=== PATIENT | male | born 1940 | race Caucasian/White ===

== ENCOUNTER 2017-11-25 04:24 | Emergency (ER) | payer MEDICARE ==
[2017-11-25 06:56] LABS: EOS % 1.1 % (0.0-3.0); HEMATOCRIT 30.5 % (42.0-52.0); HEMOGLOBIN 10.4 g/dl (13.5-17.5); IMMATURE GRANULOCYTE % 0.3 % (0-3.0); LYMPH # 0.9 10^3/uL (1.5-4.5); LYMPH % 24.4 % (24.0-44.0); MEAN CORPUSCULAR HEMOGLOBIN 35.6 pg (27.0-33.0); MEAN CORPUSCULAR HGB CONC 34.1 g/dl (32.0-36.5); MEAN CORPUSCULAR VOLUME 104.5 fl (80.0-96.0); MONO # 0.9 10^3/uL (0.0-0.8); MONO % 26.1 % (0.0-5.0); NEUTROPHILS # 1.7 10^3/uL (1.8-7.7); NEUTROPHILS % 48.1 % (36.0-66.0); PLATELET COUNT, AUTOMATED 115 10^3/uL (150-450); RED BLOOD COUNT 2.92 10^6/uL (4.30-6.10); RED CELL DISTRIBUTION WIDTH 13.6 % (11.5-14.5); WHITE BLOOD COUNT 3.5 10^3/uL (4.0-10.0)
[2017-11-25 07:09] LABS: BEDSIDE GLUCOSE 153 MG/DL (83-110)
[2017-11-25 07:18] LABS: ANION GAP 10 MEQ/L (8-16); BLOOD UREA NITROGEN 49 MG/DL (7-18); CALCIUM LEVEL 8.6 MG/DL (8.8-10.2); CARBON DIOXIDE LEVEL 22 MEQ/L (21-32); CHLORIDE LEVEL 104 MEQ/L (98-107); CREATININE FOR GFR 2.01 MG/DL (0.70-1.30); GLOMERULAR FILTRATION RATE 34.4 (>42); GLUCOSE, FASTING 156 MG/DL (70-100); POTASSIUM SERUM 4.6 MEQ/L (3.5-5.1); SODIUM LEVEL 136 MEQ/L (136-145)
[2017-11-25] MEDS: NS 500 ML IV (07:30)
[2017-11-25 08:10] LABS: BEDSIDE GLUCOSE 157 MG/DL (83-110)
[2017-11-25 09:33] LABS: BEDSIDE GLUCOSE 209 MG/DL (83-110)
[2017-11-25 10:42] LABS: BEDSIDE GLUCOSE 241 MG/DL (83-110)
[2017-11-25 10:53] LABS: BEDSIDE GLUCOSE 170 MG/DL (83-110)
== END 2017-11-25 12:19 | disposition home or self-care (01) ==
LOC: M ED 04:24
DX: E11.649 Type 2 diabetes mellitus with hypoglycemia without coma (principal); I11.9 Hypertensive heart disease without heart failure; M10.9 Gout, unspecified; Z87.891 Personal history of nicotine dependence; Z79.899 Other long term (current) drug therapy; Z79.82 Long term (current) use of aspirin
CPT/HCPCS: 93005

== ENCOUNTER 2018-10-27 12:02 | Inpatient (IN) | payer MEDICARE ==
[~2018-10-27] VITALS: Ht 177.8 cm; Wt 68.1 kg
[~2018-10-27 12:02] MED LIST: ALLO100T PO; ASPI81TA85 PO; CARV3.12 PO; DIGO0.12 PO; GEMF600T5 PO; GLYB1POW XX; LOSA25TA14 PO; SPIR-10 PO
[2018-10-27] MEDS ORDERED: METOCLOPRAMIDE INJ 10MG/2ML VIAL (J2765) IV ONE (12:45)
[2018-10-27] MEDS ORDERED: NS 1,000 ML IV SCH (12:45)
--- NOTE | 2018-10-27 12:52 | REP ---
Chest one-view HISTORY: Syncope Comparison: None Parenchymal density is present in the left lower lobe consistent with atelectasis or infiltrate. The cardiac silhouette is enlarged. The pulmonary vasculature is normal in appearance. Impression: 1. Left lower lobe atelectasis or infiltrate. 2. Cardiomegaly. Electronically Signed by Phoenix Lopez MD 10/27/2018 12:43 P
--- NOTE | 2018-10-27 12:54 | REP ---
CT Head without contrast HISTORY: Dizziness COMPARISON: None Areas of decreased attenuation are present in the periventricular white matter. This represents small-vessel ischemic disease. here is no intraparenchymal hemorrhage, acute infarct, mass or midline shift. The ventricular system and cortical sulci as well as subarachnoid space in the posterior fossa are dilated consistent with moderate volume loss. A janey cisterna magna is present. There is no extra cerebral collection. There is no fracture. The visualized sinuses are clear. IMPRESSION: 1. Small vessel ischemic disease. 2. Moderate volume loss. Electronically Signed by Phoenix Lopez MD 10/27/2018 12:45 P
[2018-10-27 13:15] LABS: EOS % 0.5 % (0.0-3.0); HEMATOCRIT 32.5 % (42.0-52.0); HEMOGLOBIN 10.8 g/dl (13.5-17.5); LYMPH # 0.4 10^3/uL (1.5-4.5); LYMPH % 8.4 % (24.0-44.0); MEAN CORPUSCULAR HEMOGLOBIN 35.4 pg (27.0-33.0); MEAN CORPUSCULAR HGB CONC 33.2 g/dl (32.0-36.5); MEAN CORPUSCULAR VOLUME 106.6 fl (80.0-96.0); MONO # 0.7 10^3/uL (0.0-0.8); MONO % 16.5 % (0.0-5.0); NEUTROPHILS # 3.2 10^3/uL (1.8-7.7); NEUTROPHILS % 73.2 % (36.0-66.0); PLATELET COUNT, AUTOMATED 199 10^3/uL (150-450); RED BLOOD COUNT 3.05 10^6/uL (4.30-6.10); WHITE BLOOD COUNT 4.3 10^3/uL (4.0-10.0)
[2018-10-27] MEDS ORDERED: ENTR1TAB7 PO (13:19)
[2018-10-27] MEDS ORDERED: MIRT1TAB15 PO (13:19)
[2018-10-27 13:26] LABS: INR 1.07
[2018-10-27 13:50] LABS: CALCIUM LEVEL 9.3 MG/DL (8.8-10.2); CK-MB VALUE MASS 1.6 NG/ML (<3.6); CREATININE FOR GFR 1.79 MG/DL (0.70-1.30); GLOMERULAR FILTRATION RATE 39.2 (>42); MAGNESIUM LEVEL 1.9 MG/DL (1.8-2.4); MB/CK RELATIVE INDEX 2.13 (< OR =4); POTASSIUM SERUM 5.2 MEQ/L (3.5-5.1); THYROID STIMULATING HORMONE 6.3 uIU/ML (0.358-3.740); TROPONIN I 0.23 NG/ML (< 0.10)
[2018-10-27] MEDS ORDERED: MOXIFLOXACIN HCL 400 MG in APPROPRIATE DILUENT 1 EA IV ONE (14:00)
[2018-10-27] MEDS: METOPROLOL 5 MG/5 ML VIAL IV SCH ×3 (14:20→15:09)
[2018-10-27] MEDS ORDERED: ACETAMINOPHEN TAB 650MG DOSE (2X325MG) PO PRN (15:15)
[2018-10-27] MEDS ORDERED: GLUCOSE 4 GM CHEW TABLET PO PRN (15:15)
[2018-10-27] MEDS ORDERED: GLUCAGON FOR INJ 1 MG VIAL (J1610) SC PRN (15:15)
[2018-10-27] MEDS ORDERED: DEXTROSE 50% 50 ML SYRINGE IV PRN (15:15)
[2018-10-27] MEDS ORDERED: ALBUTEROL SULFATE 2.5 MG/0.5 ML INH NEB SOLN NEB PRN (15:15)
--- NOTE | 2018-10-27 15:20 | HPEPDOC ---
General Date of Admission 10/27/18 Date of Service: Oct 27, 2018 Other Providers PCP - Diamond Benedict in [facility] Attending Physician: IRAJ ZELAYA DO Chief Complaint The patient is a 78-year-old male admitted with a reason for visit of near Syncope. Source: Patient Exam Limitations: No limitations Timing/Duration: 4-6 hours, Intermittent, Resolved prior to arrival, This morning Severity: Severe Associated Symptoms: Cough, Fever, Chills, Malaise, Nausea, Vomiting, Shortness of breath, Syncope, Weakness, Hypotension, Dizziness, Mechanical fall History of Present Illness 78 yo male at his camp today was cutting grass when he began having increased chills, dry cough and N,V, diarrhea. He states had near syncopal episode and fell. no LOC. came to ED for further evaluation. 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 He states no CP, no SOB, no signs of CHF. States hospitalized 02/2018 with CHF but does not know EF. Home Medications Scheduled Allopurinol (Zyloprim) 300 Mg Tablet, 300 MG PO DAILY, (Reported) Aspirin (Aspir 81) 81 Mg Tab, 81 MG PO QHS, (Reported) Carvedilol (Carvedilol) 3.125 Mg Tab, 3.125 MG PO DAILY, (Reported) Digoxin (Digoxin) 125 Mcg Tab, 125 MCG PO DAILY, (Reported) Mirtazapine (Remeron) 15 Mg Tablet, 15 MG PO QHS, (Reported) Sacubitril/Valsartan (Entresto 49 mg-51 mg Tablet) 1 Each Tablet, 0.5 TAB PO BID, (Reported) Spironolact/Hydrochlorothiazid (Spironolactone-Hctz 25-25 Tab) 1 Each Tablet, 1 EA PO DAILY, (Reported) Scheduled PRN Sodium Chloride (Saline Nasal [place]) 44 Ml [place], 1 SPRAY NARES QID PRN for NASAL DRYNESS, (Reported) Allergies Coded Allergies: No Known Allergies (Unverified , 10/27/18) Past Medical History Medical History Gout, CHF,Hyperlipidemia,insomnia, diet controlled DM Patient states no prior [place] or CAD Surgical History hernia repair, lip biopsy, skin biopsy to left hand Family History Significant Family History: Other mother CHF father from CVA Social History * Smoker: former Smoker (quit 1994) Alcohol: occationally Drugs: denies A-FIB/CHADSVASC A-FIB History Current/History of A-Fib/PAF?: No Review of Systems Other systems 10 comprehensive systems reviewed and negative except as per HPI Physical Examination General Exam: Positive: Alert, Cooperative, No Acute Distress Eye Exam: Positive: PERRLA, Conjunctiva & lids normal, EOMI ENT Exam: Positive: Atraumatic, Mucous membr. moist/pink Neck Exam: Positive: Supple, +2 carotid pulse wo bruit Chest Exam: Positive: Clear to auscultation, Normal air movement, Rhonchi (LLL); Negative: Rales, Wheezing Heart Exam: Positive: Tachycardic, Regular Rhythm Telemetry: Positive: No significant arrhythmia, Tachycardia Abdomen Exam: Positive: Normal bowel sounds, Soft (NT, ND NABS) Extremity Exam: Positive: Normal pulses; Negative: Clubbing, Cyanosis, Edema Skin Exam: Positive: Nl turgor and temperature Neuro Exam: Positive: Normal Speech, Strength at 5/5 X4 ext, Normal Tone, Sensation Intact, Cranial Nerves 3-12 NL Psych Exam: Positive: Mental status NL, Mood NL, Oriented x 3 Vital Signs Vital Signs Date Time Temp Pulse Resp B/P (MAP) Pulse Ox O2 Delivery O2 Flow Rate FiO2 10/27/18 15:15 93 106/54 (71) 10/27/18 15:14 102.1 10/27/18 14:45 95 10/27/18 12:14 20 Room Air Laboratory Data Labs 24H Laboratory Tests 2 10/27/18 13:01: Immature Granulocyte % (Auto) 1.4, White Blood Count 4.3, Red Blood Count 3.05L, Hemoglobin 10.8L, Hematocrit 32.5L, Mean Corpuscular Volume 106.6H, Mean Corpuscular Hemoglobin 35.4H, Mean Corpuscular Hemoglobin Concent 33.2, Red Cell Distribution Width 13.9, Platelet Count 199, Neutrophils (%) (Auto) 73.2H, Ly mphocytes (%) (Auto) 8.4L, Monocytes (%) (Auto) 16.5H, Eosinophils (%) (Auto) 0.5, Basophils (%) (Auto) 0.0, Neutrophils # (Auto) 3.2, Lymphocytes # (Auto) 0.4L, Monocytes # (Auto) 0.7, Eosinophils # (Auto) 0.0, Basophils # (Auto) 0.0, Nucleated Red Blood Cells % (auto) 0.0, Prothrombin Time 14.0, Prothromb Time International Ratio 1.07, Anion Gap 11, Glomerular Filtration Rate 39.2L, Blood Urea Nitrogen 45H, Creatinine 1.79H, Sodium Level 135L, Potassium Level 5.2H, Chloride Level 101, Carbon Dioxide Level 23, Calcium Level 9.3, Total Creatine Kinase 75, Magnesium Level 1.9, Creatine Kinase MB 1.6, Creatine Kinase MB Relative Index 2.13, Troponin I 0.23H, Thyroid Stimulating Hormone (TSH) 6.300H 10/27/18 13:03: Digoxin Level 1.4 CBC/BMP Laboratory Tests 10/27/18 13:01 Red Blood Count 3.05 L, Mean Corpuscular Volume 106.6 H, Mean Corpuscular Hemogl obin 35.4 H, Mean Corpuscular Hemoglobin Concent 33.2, Red Cell Distribution Width 13.9, Neutrophils (%) (Auto) 73.2 H, Lymphocytes (%) (Auto) 8.4 L, Monocytes (%) (Auto) 16.5 H, Eosinophils (%) (Auto) 0.5, Basophils (%) (Auto) 0.0, Neutrophils # (Auto) 3.2, Lymphocytes # (Auto) 0.4 L, Monocytes # (Auto) 0.7, Eosinophils # (Auto) 0.0, Basophils # (Auto) 0.0, Calcium Level 9.3, Total Creatine Kinase 75 RAD Interpretation STUDY: CXR (LLL infiltrate) Rad Actions: Report Reviewed, Films Reviewed, Discussed with the pt RAD Interpretation: Other Result Comments: (CT HEAD: no cva or bleed) Assessment/Plan 1. N/V/D - unclear etiology (gastro enteritis?) 2. LLL pneumonia on CXR - given levaquin in ED. will start rocephin/azith, gentle IVF. 3. Dehydration - gentle IVF - watch for S/S CHF. hold HCTZ 4. Hyperkalemia due to dehydration and meds - currently on entresto and s pironolactone. give IVF and repeat in AM, if still elevated - hold spironolactone 5. Elevated troponin - possible demand ischemia due to N,V,D and dehydration/fever; serial troponin, cardiac echo in AM. old records requested. 6. KASSY due to dehydration - gentle IVF and monitor creatinine 7. history of CHF (last acute episode in [facility] 02/2018) - records reqeusted 8. near syncope due to dehydration - tele, IVF CODE STATUS: FULL DVT prophylaxis: - lovenox Plan / VTE VTE Prophylaxis Ordered?: Yes IRAJ ZELAYA DO Oct 27, 2018 15:20
[2018-10-27] MEDS ORDERED: SPIR1TAB34 PO (15:27)
[2018-10-27] MEDS ORDERED: HM S0.65 NARES (15:27)
[2018-10-27] MEDS ORDERED: ZYLO300T6 PO (15:27)
[2018-10-27] MEDS ORDERED: REME15TA PO (15:27)
[2018-10-27] MEDS ORDERED: ACETAMINOPHEN 325 MG TAB PO ONE (15:30)
[2018-10-27] MEDS ORDERED: ONDANSETRON 4 MG ORAL DISINTEGRATING TAB (Q0162 PER 1MG) PO PRN (15:30)
[2018-10-27] MEDS ORDERED: ONDANSETRON 4MG/2ML VIAL (J2405) IV PRN (15:30)
[2018-10-27] MEDS: NS 1,000 ML IV SCH (16:05)
[2018-10-27] MEDS: HumaLOG INSULIN (NovoLOG) PER UNIT SC SCH (20:53)
[2018-10-27] MEDS: guaiFENesin ER 600 MG TAB PO SCH (21:00)
[2018-10-27] MEDS ORDERED: HumaLOG INSULIN (NovoLOG) PER UNIT SC SCH (21:00)
[2018-10-27] MEDS ORDERED: CARVedilol 3.125 MG TAB PO SCH (21:00)
[2018-10-27] MEDS ORDERED: SODIUM CHLORIDE NASAL 0.65% SPRAY BTL (OCEAN) PRN (22:30)
[2018-10-27 22:40] VITALS: BP 117/56
[2018-10-28] VITALS: BP 111/54
[2018-10-28] MEDS: NS 1,000 ML IV SCH (00:35)
[2018-10-28] MEDS ORDERED: ASPIRIN 81 MG CHEW TABLET PO ONE (01:00)
[2018-10-28] MEDS ORDERED: HEPARIN DRIP 25,000 UNITS in APPROPRIATE DILUENT 1 EA IV SCH (02:03)
[2018-10-28] MEDS ORDERED: NITROGLYCERIN 0.4 MG SUBL TABLET SL PRN (02:15)
[2018-10-28] MEDS ORDERED: HEPARIN SOD (PORCINE) 5000 UNITS/ML VIAL IV PRN (02:15)
--- NOTE | 2018-10-28 02:20 | IPNPDOC ---
Date Seen The patient was seen on 10/28/18. Progress Note Patient noted to have rising serial troponins. He continued to denies any chest pain or discomfort and remains hemodynamically stable. Most recent troponin 2.4. EKG appeared to have ST depression in V2 but otherwise no significant change from prior. He was given ASA and being started on Heparin drip. Discussed with patient, he lives in [place] and follows with Dr. Mami Flores who is associated with [facility]. Call made out to transfer center and discussed with nursing dehydrogenation supervisor operations and maintenance specialist who spoke with attending. [facility] does not do direct transfers at night and given that patient is stable at this time, not requiring emergent cardiac catherization, will monitor patient and transfer in morning for NSTEMI. Patient currently hemodynamically stable with no chest pain. Will monitor closely overnight. Should anything changes, will initiate emergent transfer if warranted. CASSIYD DE LA ROSA MD Oct 28, 2018 02:20
[2018-10-28] MEDS ORDERED: CLOPIDOGREL 300 MG TAB (PLAVIX) PO STA (02:46)
[2018-10-28 04:00] VITALS: BP 113/59
[2018-10-28] MEDS: HumaLOG INSULIN (NovoLOG) PER UNIT SC SCH (07:30)
[2018-10-28 07:58] VITALS: BP 130/57
[2018-10-28 07:59] LABS: HEMATOCRIT 22.6 % (42.0-52.0); HEMOGLOBIN 7.6 g/dl (13.5-17.5); MEAN CORPUSCULAR HEMOGLOBIN 35.7 pg (27.0-33.0); MEAN CORPUSCULAR HGB CONC 33.6 g/dl (32.0-36.5); MEAN CORPUSCULAR VOLUME 106.1 fl (80.0-96.0); PLATELET COUNT, AUTOMATED 114 10^3/uL (150-450); RED BLOOD COUNT 2.13 10^6/uL (4.30-6.10)
--- NOTE | 2018-10-28 08:15 | DS.PDOC ---
Discharge Summary General Date of Admission Oct 27, 2018 at 15:04 Date of Discharge 10/28/18 Attending Physician: IRAJ ZELAYA DO Discharge Summary PROCEDURES PERFORMED DURING STAY: none ADMITTING DIAGNOSES: 1. N/V/D - unclear etiology (gastro enteritis?) 2. LLL pneumonia on CXR - given levaquin in ED. will start rocephin/azith, gentle IVF. 3. Dehydration - gentle IVF - watch for S/S CHF. hold HCTZ 4. Hyperkalemia due to dehydration and meds - currently on entresto and sumeet nolactone. give IVF and repeat in AM, if still elevated - hold spironolactone 5. Elevated troponin - possible demand ischemia due to N,V,D and dehydration/fever; serial troponin, cardiac echo pending , not performed. old records requested. 6. KASSY due to dehydration - gentle IVF and monitor creatinine 7. history of CHF (last acute episode in [facility] 02/2018) - records reqeusted 8. near syncope due to dehydration - tele, IVF DISCHARGE DIAGNOSES: NSTEMI type II LLL pneumonia - probable bacterial Dehydration Hyperkalemia KASSY due to Dehydration Near syncope history of CHF - unknown tyoe COMPLICATIONS/CHIEF COMPLAINT: near syncope with Dehydration Elevated Troponin Pneumonia. HISTORY OF PRESENT ILLNESS: 78 yo male mowing lawn at camp when had chills, fever, N,V,D and near syncope. See H&P for details HOSPITAL COURSE: Patient admitted and found to have a mild LLL pneumonia - star jose on rocephin/azithromycin. He remained afebrile. BC pending. He initially had a mild troponin that continued to increase - but patient remained asymptomatic. His fever, N,V and Diarrhea completely resolved. Interventional cardiology not available at current facility, patient is being transferred to [facility] - Dr Warren accepting for further care and evaluation DISCHARGE MEDICATIONS: Please see below and nursing MAR transfer medication list ALLERGIES: Please see below. PHYSICAL EXAMINATION ON DISCHARGE: VITAL SIGNS: Please see below. GENERAL: pleasant NAD AAOx3 CARDIOVASCULAR EXAMINATION: RRR no murmur TELE: NSR with PACs RESPIRATORY EXAMINATION: LCTA no W/R/R ABDOMINAL EXAMINATION: soft NT ND NABS EXTREMITIES: no edema SKIN: normal turgor, no rash LABORATORY DATA: Please see below. IMAGING: CXR with subtle LLL pneumonia PROGNOSIS: good ACTIVITY:bedrest DIET: NPO DISCHARGE PLAN: transfer to [facility] on heparin drip. patient has received ASA and plavix today DISPOSITION: transfer to higher level of care DISCHARGE INSTRUCTIONS: maintain IVF, heparin drip, IV rocephin, IV azith unil evaluated at [facility] DISCHARGE CONDITION: stable TIME SPENT ON DISCHARGE: 45 minutes. Vital Signs/I&Os Vital Signs Date Time Temp Pulse Resp B/P (MAP) Pulse Ox O2 Delivery O2 Flow Rate FiO2 10/28/18 07:58 99.1 74 20 130/57 (81) 96 10/27/18 21:17 Room Air I&O- Last 24 Hours up to 6 AM 10/28/18 06:00 Intake Total 1375 ml Output Total 525 ml Balance 850 ml Laboratory Data Labs 24H Laboratory Tests 2 10/27/18 13:01: Immature Granulocyte % (Auto) 1.4, White Blood Count 4.3, Red Blood Count 3.05L, Hemoglobin 10.8L, Hematocrit 32.5L, Mean Corpuscular Volume 106.6H, Mean Corpuscular Hemoglobin 35.4H, Mean Corpuscular Hemoglobin Concent 33.2, Red Cell Distribution Width 13.9, Platelet Count 199, Neutrophils (%) (Auto) 73.2H, Lymphocytes (%) (Auto) 8.4L, Monocytes (%) (Auto) 16.5H, Eosinophils (%) (Auto) 0.5, Basophils (%) (Auto) 0.0, Neutrophils # (Auto) 3.2, Lymphocytes # (Auto) 0.4L, Monocytes # (Auto) 0.7, Eosinophils # (Auto) 0.0, Basophils # (Auto) 0.0, Nucleated Red Blood Cells % (auto) 0.0, Prothrombin Time 14.0, Prothromb Time International Ratio 1.07, Anion Gap 11, Glomerular Filtration Rate 39.2L, Blood Urea Nitrogen 45H, Creatinine 1.79H, Sodium Level 135L, Potassium Level 5.2H, Chloride Level 101, Carbon Dioxide Level 23, Calcium Level 9.3, Total Creatine Kinase 75, Magnesium Level 1.9, Creatine Kinase MB 1.6, Creatine Kinase MB Relative Index 2.13, Troponin I 0.23H, Thyroid Stimulating Hormone (TSH) 6.300H 10/27/18 13:03: Digoxin Level 1.4 10/27/18 19:34: Troponin I 1.80#*H 10/27/18 19:58: Bedside Glucose (Misc Panel) 199H 10/27/18 21:08: Bedside Glucose (Misc Panel) 187H 10/27/18 23:45: Troponin I 2.43#*H 10/28/18 03:16: Activated Partial Thromboplast Time 46.1H 10/28/18 07:28: Nucleated Red Blood Cells % (auto) 0.0 CBC/BMP Laboratory Tests 10/27/18 13:01 Red Blood Count 3.05 L, Mean Corpuscular Volume 106.6 H, Mean Corpuscular Hemoglobin 35.4 H, Mean Corpuscular Hemoglobin Concent 33.2, Red Cell Dis tribution Width 13.9, Neutrophils (%) (Auto) 73.2 H, Lymphocytes (%) (Auto) 8.4 L, Monocytes (%) (Auto) 16.5 H, Eosinophils (%) (Auto) 0.5, Basophils (%) (Auto) 0.0, Neutrophils # (Auto) 3.2, Lymphocytes # (Auto) 0.4 L, Monocytes # (Auto) 0.7, Eosinophils # (Auto) 0.0, Basophils # (Auto) 0.0, Calcium Level 9.3, Total Creatine Kinase 75 10/28/18 07:28 Red Blood Count 2.13 L, Mean Corpuscular Volume 106.1 H, Mean Corpuscular Hemoglobin 35.7 H, Mean Corpuscular Hemoglobin Concent 33.6, Red Cell Distribution Width 14.0 FSBS Laboratory Tests Test 10/27/18 19:58 10/27/18 21:08 Range/Units Bedside Glucose (Misc Panel) 199 187 83-110 MG/DL Microbiology Microbiology 10/27/18 Blood Culture, Received Pending Discharge Medications Scheduled Allopurinol (Zyloprim) 300 Mg Tablet, 300 MG PO DAILY, (Reported) Aspirin (Aspir 81) 81 Mg Tab, 81 MG PO QHS, (Reported) Carvedilol (Carvedilol) 3.125 Mg Tab, 3.125 MG PO DAILY, (Reported) Digoxin (Digoxin) 125 Mcg Tab, 125 MCG PO DAILY, (Reported) Mirtazapine (Remeron) 15 Mg Tablet, 15 MG PO QHS, (Reported) Sacubitril/Valsartan (Entresto 49 mg-51 mg Tablet) 1 Each Tablet, 0.5 TAB PO BID, (Reported) Spironolact/Hydrochlorothiazid (Spironolactone-Hctz 25-25 Tab) 1 Each Tablet, 1 EA PO DAILY, (Reported) Scheduled PRN Sodium Chloride (Saline Nasal [place]) 44 Ml [place], 1 SPRAY NARES QID PRN for NASAL DRYNESS, (Reported) Allergies Coded Allergies: No Known Allergies (Unverified , 10/27/18) IRAJ ZELAAY DO Oct 28, 2018 08:15
[2018-10-28 08:33] LABS: HEMOGLOBIN A1c 6.1 %
[2018-10-28 08:45] LABS: ALBUMIN 2.5 GM/DL (3.2-5.2); BILIRUBIN,TOTAL 0.3 MG/DL (0.2-1.0); CALCIUM LEVEL 8.3 MG/DL (8.8-10.2); CK-MB VALUE MASS 2.4 NG/ML (<3.6); CREATININE FOR GFR 2.4 MG/DL (0.70-1.30); GLOMERULAR FILTRATION RATE 27.9 (>42); TOTAL PROTEIN 5.5 GM/DL (6.4-8.2); TROPONIN I 2.32 NG/ML (< 0.10)
[2018-10-28] MEDS: guaiFENesin ER 600 MG TAB PO SCH (08:49)
[2018-10-28 08:50] VITALS: BP 130/57
--- NOTE | 2018-10-28 08:52 | ECGEPIP ---
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
[2018-10-28] MEDS ORDERED: ALLOPURINOL 300 MG TAB PO SCH (09:00)
[2018-10-28] MEDS ORDERED: ENTRESTO 49-51MG TABLET (SACUBITRIL/VALSARTAN) PO SCH (09:00)
[2018-10-28] MEDS ORDERED: SPIRONOLACTONE 25 MG TAB PO SCH (09:00)
[2018-10-28] MEDS ORDERED: cefTRIAXone SOD 1 GM in D5W MINI-BAG PLUS 50 ML IV SCH (09:00)
[2018-10-28] MEDS ORDERED: ENOXAPARIN 40 MG/0.4 ML SYRINGE (J1650) SC SCH (09:00)
[2018-10-28] MEDS ORDERED: CARVedilol 3.125 MG TAB PO SCH (09:00)
[2018-10-28] MEDS ORDERED: ATORVASTATIN 20 MG TAB PO SCH (09:00)
[2018-10-28] MEDS ORDERED: DIGOXIN 0.125 MG TAB PO SCH (09:00)
[2018-10-28 09:16] LABS: HEMATOCRIT 25.1 % (42.0-52.0); HEMOGLOBIN 8.4 g/dl (13.5-17.5)
[2018-10-28] MEDS ORDERED: AZITHROMYCIN INJ 500 MG, VIAL MATE ADAPTER 1 EACH in D5W 250 ML IV SCH (10:00)
--- NOTE | 2018-10-28 17:17 | ECGEPIP ---
[facility] Test Date: 2018-10-28 Pat Name: CONY DELEON Department: Room: Gender: Male Life Skills Trainer: WINSTON : 1940 Requested By: RG ADLER Order Number: [id number] Reading MD: Patrick Espinosa Measurements Intervals [place] Rate: 67 P: 106 [place]: 205 QRS: QRSD: 166 T: QT: 445 QTc: 472 Interpretive Statements SINUS RHYTHM WITH OCCASIONAL SUPRAVENTRICULAR PREMATURE COMPLEXES INTRAVENTRICULAR CONDUCTION DELAY Marked left axis deviation Electronically Signed on 10-28-2018 17:17:38 EDT by Patrick Espinosa
--- NOTE | 2018-10-28 17:22 | ECGEPIP ---
[facility] Test Date: 2018-10-28 Pat Name: CONY DELEON Department: Room: 0102 Gender: Male Blow Mold Operator: : 1940 Requested By: RG ADLER Order Number: [id number] Reading MD: Patrick Espinosa Measurements Intervals [place] Rate: 77 P: 86 [place]: 197 QRS: QRSD: 177 T: QT: 415 QTc: 471 Interpretive Statements SINUS RHYTHM WITH OCCASIONAL SUPRAVENTRICULAR PREMATURE COMPLEXES Right bundle-branch block with left anterior fascicular block Electronically Signed on 10-28-2018 17:22:14 EDT by Patrick Espinosa
[2018-10-28] MEDS ORDERED: ASPIRIN 81 MG ENTERIC TAB PO SCH (21:00)
[2018-10-28] MEDS ORDERED: MIRTAZAPINE 15 MG TAB PO SCH (21:00)
[2018-10-29] MEDS ORDERED: CLOPIDOGREL 75 MG TAB PO SCH (09:00)
== END 2018-10-28 12:10 | disposition short-term general hospital (02) | DRG 280 ==
LOC: M ED 12:02 → EDBD 12:02 → M ED INP 15:04
PROVIDERS: ADMIT Family Medicine; ATTEND Family Medicine
DX: I21.4 Non-ST elevation (NSTEMI) myocardial infarction (principal); J15.9 Unspecified bacterial pneumonia; N17.9 Acute kidney failure, unspecified; E86.0 Dehydration; E87.5 Hyperkalemia; I50.9 Heart failure, unspecified; Z79.82 Long term (current) use of aspirin; Z79.899 Other long term (current) drug therapy; M10.9 Gout, unspecified; E78.5 Hyperlipidemia, unspecified; G47.00 Insomnia, unspecified; Z87.891 Personal history of nicotine dependence